=== PATIENT | female | born 1985 | race African-American/Black ===

== ENCOUNTER 2017-07-18 10:30 | Inpatient (IN) | payer OTHER ==
[2017-07-20] MEDS ORDERED: CITRIC ACID/SODIUM CITRATE 30 ML UNIT-DOSE CUP PO ONE (09:29)
[2017-07-20] MEDS ORDERED: ELECTROLYTE-148 SOLN 500 ML IV ONE (09:29)
[2017-07-20] MEDS ORDERED: ELECTROLYTE-148 SOLN 1,000 ML IV SCH (09:30)
[2017-07-20 09:49] VITALS: BMI 51.2
--- NOTE | 2017-07-20 10:13 | HP ---
Past Medical History - Primary Care Physician PCP:: Jael Howe - Admission Chief Complaint: 31 yrs , , 39.3/7 weeks previous c/section x2, requests for repeat c/section & tubal ligation History of Present Illness: PNC at [address] [place] [address] . wt gain 01/25/17 work Up: O pos, Rpr nr, Hbsag neg, Hiv neg, Rubella immune, Sickle neg , Pap NILM Gc/ct neg NT screen not done . Quad screen abn for Trisomy 21 1;559 risk Ultrasound done by [facility] for growth . 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 Weeks Gestation by Dates: 39.1 ...EDC by Dates: 07/26/17 ...EDC by Sono: 07/24/17 (39.3/7) Additional OB History: G1 2004 Ind ab. G2 02/09/2010 primary lftc/s 6'10". G3 repeat lftc/s 8'14" h/o GDM Heme/Onc: Yes: Anemia (rx po iron & pnv) Infectious Disease: No: AIDS, HIV, STD's, Tuberculosis Psych: No: Addictions, Bipolar, Panic Endocrine: No: Diabetes Mellitus - Past Surgical History Past Surgical History: Yes: (02/09/10 & 11/13/12) Hx Myomectomy: No Hx Transabdominal Cerclage: No - Smoking History Smoking history: Never smoked Have you smoked in the past 12 months: No Aproximately how many cigarettes per day: 2 - Alcohol/Substance Use Hx Alcohol Use: No Home Medications - Allergies Allergies/Adverse Reactions: Allergies Allergy/AdvReac Type Severity Reaction Status Date / Time Penicillins Allergy Severe Difficulty Verified 07/20/17 09:51 Breathing NUTS Allergy Severe Difficulty Uncoded 07/20/17 09:51 Breathing - Home Medications Home Medications: Ambulatory Orders Ferrous Sulfate 325 mg PO BID 06/06/17 Pnv No.95/Ferrous Fum/Folic AC [ Vitamin Tablet] 1 each PO DAILY Physical Exam - Maternity Vital Signs: Selected Entries 07/20/17 09:42 Weight 327 lb Selected Entries 07/20/17 09:42 Temperature 98.0 F Pulse Rate 98 H Respiratory 20 Rate Blood Pressure 132/69 Constitutional: Yes: Well Nourished, Obese, Pallor Eyes: Yes: WNL HENT: Yes: WNL, Normocephalic Neck: Yes: WNL Cardiovascular: Yes: WNL, Regular Rate and Rhythm Lungs: Clear to auscultation Breast(s): Yes: WNL - Abdominal Exam/OB Fundal Height: 42 Number of Fetuses: Single Presentation: Vertex Contractions: No Monitor Mode: External Heart Rate (range): 130-140 Heart Rate Location: RUST Category: I Accelerations: Uniform Decelerations: None - Vaginal Exam/OB Vaginal Bleediing: No Dilatation (cm): close Effacement (%): unefface Amniotic Membrane Status: Intact Presentation: Vertex/Position Station: -3 - Physical Exam Musculoskeletal: Yes: WNL Extremities: Yes: WNL. No: Calf Tenderness Edema: Yes Edema: LLE: 1+, RLE: 1+ Integumentary: Yes: Incision (pfannensteil scar), Tattoos Deep Tendon Reflex Grade: Normal +2 ...Motor Strength: WNL Psychiatric: Yes: WNL, Alert, Oriented - Labs Lab Results: Laboratory Tests 11/11/12 07/18/17 07/18/17 12:35 15:20 15:20 WBC 7.1 D RBC 3.65 Hgb 8.3 L D Hct 26.7 L D Plt Count 257 Neutrophils % 59.9 D Lymphocytes % 29.5 D PT with INR 11.00 INR 0.97 Sodium Potassium Chloride Carbon Dioxide BUN Creatinine Random Glucose AST ALT Total Protein Albumin Urine Protein Urine RBC 4 Urine WBC 13 Ur Leukocyte Esterase Urine WBC (Auto) 01/15/18 01/15/18 15:20 15:23 WBC RBC Hgb Hct Plt Count Neutrophils % Lymphocytes % PT with INR INR Sodium 140 Potassium 4.0 Chloride 107 Carbon Dioxide 23 BUN 9 Creatinine 0.6 Random Glucose 72 L AST 12 L D ALT 13 D Total Protein 6.8 Albumin 2.7 L Urine Protein 1+ H Urine RBC Urine WBC Ur Leukocyte Esterase 1+ H Urine WBC (Auto) 13 Hemorrhage Risk Assessment - Risk Factors Medium Risk Factors: Yes: Prior , uterine surgery,or multiple laparotomies, Obesity (BMI >40) Risk Score: 2 Risk Level: High Risk Problem List - Problems (1) with 39 completed weeks gestation Code(s): Z3A.39 - 39 WEEKS GESTATION OF (2) Previous section Code(s): Z98.891 - HISTORY OF UTERINE SCAR FROM PREVIOUS SURGERY (3) Morbid obesity with BMI of 50.0-59.9, adult Code(s): E66.01 - MORBID (SEVERE) OBESITY DUE TO EXCESS CALORIES; Z68.43 - BODY MASS INDEX (BMI) 50-59.9 , ADULT (4) Anemia affecting fourth Code(s): O99.019 - ANEMIA COMPLICATING , UNSPECIFIED TRIMESTER; O09.40 - SUPERVISION OF W GRAND MULTIPARITY, UNSP TRIMESTER Assessment/Plan 31 yrs , 39.3/7 weeks , previous c/sectionc2, multiparity Anemia, requests for repeat c/section & ,BTL
[2017-07-20] MEDS ORDERED: morphine SULFATE/Preservative Free 0.5 MG/ML (1cc Syringe) ONE ×7 (10:39→12:40)
[2017-07-20] MEDS ORDERED: ePHEDrine SULFATE 50 MG/1 ML AMPULE ONE (10:40)
[2017-07-20] MEDS ORDERED: PROPOFOL 20 ML ONE ×2 (10:40→12:54)
[2017-07-20] MEDS ORDERED: PHENYLEPHRINE HCL 10 MG/1 ML SINGLE DOSE VIAL ONE (11:39)
[2017-07-20] MEDS ORDERED: MIDAZOLAM HCL 2 MG/2 ML SINGLE DOSE VIAL ONE ×2 (12:18)
[2017-07-20 12:54] LABS: ARTERIAL BLOOD GAS BASE EXCESS -7.4 meq/l (-2-2); ARTERIAL BLOOD GAS PCO2 73.9 mmHg (35-45); ARTERIAL BLOOD GAS pH 7.12 (7.35-7.45)
[2017-07-20 12:55] LABS: VENOUS PH 7.24 (7.32-7.42); VENOUS PO2 22.7 mmHg (28-48)
[2017-07-20] MEDS ORDERED: GENTAMICIN SO4 80 MG/2 ML VIAL ONE (12:56)
[2017-07-20] MEDS ORDERED: OXYTOCIN 20 UNITS in 0.9% NS 20 UNIT/1,000 ML INFUS.BAG IV ONE (12:57)
[2017-07-20] MEDS ORDERED: morphine SULFATE/Preservative Free 0.5 MG/ML (1cc Syringe) EP ONE (13:00)
[2017-07-20] MEDS: OXYTOCIN 20 UNITS in 0.9% NS 20 UNIT/1,000 ML INFUS.BAG IV SCH (13:30)
[2017-07-20] MEDS ORDERED: METHYLERGONOVINE MALEATE 0.2 MG/1 ML AMP IM PRN (13:36)
[2017-07-20] MEDS ORDERED: ACETAMINOPHEN 1000 MG/100 ML VIAL (NON FORMULARY) IVPB PRN (13:43)
[2017-07-20] MEDS ORDERED: ONDANSETRON 4 MG/2 ML VIAL IVPUSH PRN (13:45)
--- NOTE | 2017-07-20 13:55 | OP ---
Operative Note - Note: Operative Date: 07/20/17 Pre-Operative Diagnosis: 39.3 weeks, previous c/section x2 , morbid obesity, , multiparity, anemia Operation: Repeat LFTC/Section & BTL & Lysis of omental adhesions Findings: 12.07 PM .Baby Boy Vx , ROT , 9/9, WT 7'13", Ht 19" . during delivery of baby vx , rot position, Mity vac suction cup applied to enable the delivery omental adhesions to uterus anteriorly & Rt side latrally , clamped cut cauterized & ligated . Both tubes in mid ampullary region were doubly ligated with plain catgut cut & endosalpinx cauterized by modified Veronica technique both ovaries normal Surgeon: Jael Howe Rapid Transit Operator: Kenna Salgado Anesthesiologist/CLIENT SERVICE ASSOCIATE: Keke Haque MD Anesthesia: Epidural (attempted spinal followed by epidural ) Specimens Removed: cord segment for cord blood gas,. cord blood. placenta Estimated Blood Loss (mls): 700 Drains, Volume Out (mls): 150 Fluid Volume Replaced (mls): 3,000 (iv clindamicin 600 mg prior to incision )
--- NOTE | 2017-07-20 14:16 | PN ---
Delivery - Delivery Section: Repeat, Low Flap Transverse (BTL, , lysis of omental adhesions ) Type of Anesthesia: Epidural Episiotomy/Laceration: None EBL (cc): 700 (stokes output 150 ml raina color ) Delivery, Single - Stages of Labor Date of Delivery: 07/20/17 Time of Delivery: 12:07 Time Placenta Delivered: 12:08 Placenta: Yes: Manual Removal, Uterine Exploration - Condition of Infant Sink Maker/Precision Grinder Present: Yes Name: Jamil Leslie Infant Gender: Male Weight: 7 lb 13 oz Total Hours ROM (Hrs/Mins): 0/01 - 1 Minute Total Score: 9 5 Minutes Total Score: 9 - Feeding Plan Initial Plan: Elected not to breastfeed exclusively throughout hospitalization Remarks - Remarks Remarks: 31 [id number] , Indication : 39.3/7 weeks , previous c/section x2 ,Multiparity severe Anemia ( hgb 8.3) , , Morbid Obesity ( BMI 51.2) Intraop difficulty encountered for delivery of feus, Mity Vac vaccum cup applied to deliver the baby . omental adhesions to Rt side lateral wall & ant uterine wall clamped , cut ligated or cauterized
[2017-07-20] MEDS ORDERED: ALBUTEROL SO4 18 GM HFA INHALER IH PRN (14:26)
[2017-07-20] MEDS: CLINDAMYCIN 900 MG PREMIX IVPB 900 MG/50 ML BAG IVPB SCH (17:48)
--- NOTE | 2017-07-20 20:09 | OP ---
DATE OF OPERATION: 07/20/2017 PREOPERATIVE DIAGNOSIS: 39.3 weeks, previous section x2, morbid obesity, body mass index 51.2, multiparity, and anemia. OPERATION: Repeat low-flap transverse section, bilateral tubal ligation, and lysis of omental adhesions. FINDINGS: This is a 31-year-old 4, para 2-0-1-2, hemoglobin is 8.3, she is not in labor, and her BMI is 51.2, and she has previous sections x2 done Pfannenstiel incision previously. Patient also requests for the tubal ligation. PROCEDURE: Patient abdomen was shaved and prepped, Perez catheter was placed. SCD stockings were in situ. She was taken to the operating room table. Spinal anesthesia was attempted, and it was not successful in placing the spinal anesthesia, so anesthesiologist decided to give epidural anesthesia, and so she was given epidural anesthesia, and then patient was placed in supine position. Abdominal fat was taped up to enable good access to the incision area, and then abdomen was prepped. Chloraprep was used, and then abdomen was draped in usual manner Pfannenstiel incision. Once the anesthesiologist okay to proceed with the procedure, we started section. A Pfannenstiel incision was made through previous scar, skin and subcutaneous tissue, scar tissue. Anterior rectus sheath was incised transversely. Bleeding points were clamped and cauterized, and rectus muscle was from the rectus sheath. The parietal peritoneum was attempted to open vertically.Asses to peritoneal cavity was not enough , hence both the sides muscles were transected laterally. Then there was no bladder peritoneum separately, seen, and then the lower uterine segment was incised transversely, and then fluid was clear. It was difficult to deliver the baby, so the Mityvac vacuum cup was applied on the head after 2 pull-offs, with the 3rd pull, and the fundal pressure, baby was delivered at 12:07 p.m. from ROT position. Baby's was 9 and 9, and Dr. Leslie, the artillery meteorological man, was present in the room. Baby boy, the weight was 7 pounds 13 ounces, and height was 19 inch. Cord was clamped, cut. Cord blood also was sent, cord blood was collected, and before that cord segment was sent for the cord blood gas, and placenta was completely removed with the membranes. Uterine cavity was cleaned. Uterine incision was held with 4 clamps and then uterine incision was closed in 2 layers, continuous locking with Biosyn 0 suture. Second layer was continuos locking with the Biosyn 0 suture, and hemostasis was checked. Then omental adhesions were lateral wall of the uterus was clamped, cut and lysis of adhesions anteriorly on the body of the uterus. Also there was omental adhesions, they were clamped, cut, and then the adhesions towards the uterus was suture ligated with the 2-0 Vicryl suture. Hemostasis was verified, then considered with the tubal ligation. First the left side. The left side tube was isolated and inspected completely with the fimbrial end. The ampullary portion of the tube was doubly ligated with the plain 0 catgut, and the portion of the tube above the ligature was cut and sent for pathology examination and the salpinx was cauterized. Similar procedure also was done on the right tube, and the right tube was sent for pathology examination too. Hemostasis was checked on both the sides. Both the side ovaries were inspected. They were normal. Once again hemostasis verified. Sponge, instrument, needle count was correct, and the peritoneum was isolated with the Magdalena clamps, and then parietal peritoneum was closed with the Vicryl 0 suture. Then the muscles were approximated together with a Biosyn 0 interrupted sutures. Hemostasis was verified underneath the rectus sheath flaps , and then the rectus sheath was closed with Vicryl 0 suture. Continuous sutures were taken; the subcutaneous tissue hemostasis was verified, and interrupted sutures were taken in subcutaneous tissue with the Biosyn 0 suture, and skin was approximated with the kendy. Pressure dressing was given. Blood clots were removed from the vagina. Estimated blood loss was 700 mL, and her urine output was 150 mL, raina colored in the Perez. Intraoperatively she received 3000 of fluid intraoperatively, and she received 600 mg of clindamycin prior to the incision. SURGEON: Baldemar Howe M.D. ASSOCIATE STORE LEADER SURGEON: Kenna Salgado M.D. ANESTHESIOLOGIST: Keke Haque M.D. ANESTHESIA : EPIDURAL ESTIMATED BLOOD LOSS: 700 mL. URINE OUTPUT : 150 ml Raina color BALDEMAR HOWE M.D. CHON/[id number] MTDD
[2017-07-20] MEDS: IBUPROFEN 600 MG TABLET (FP) PO PRN (21:26)
[2017-07-20] MEDS ORDERED: oxyCODONE HCL 5 MG TABLET PO PRN ×2 (23:54)
[2017-07-21] MEDS: ACETAMINOPHEN 325 MG TABLET (FP) PO PRN ×3 (00:01→20:24)
[2017-07-21] MEDS: CLINDAMYCIN 900 MG PREMIX IVPB 900 MG/50 ML BAG IVPB SCH ×2 (01:56→09:17)
[2017-07-21 08:26] LABS: BASO % 0.1 % (0-2.0); HEMATOCRIT 23.4 % (32.4-45.2); HEMOGLOBIN 7.3 GM/dL (10.7-15.3); LYMPH % 19.7 % (8-40); MCH 22.5 pg (25.7-33.7); MCHC 31.1 g/dl (32.0-36.0); MEAN CELL VOLUME 72.2 fl (80-96); MEAN PLT VOLUME 9.5 fl (7.5-11.1); NEUT % 71.2 % (42.8-82.8); PLATELET COUNT 234 K/MM3 (134-434); RBC 3.24 M/mm3 (3.60-5.2); RDW 17.5 % (11.6-15.6); WHITE BLOOD COUNT 9.4 K/mm3 (4.0-10.0)
[2017-07-21] MEDS: ENOXAPARIN NA (PORCINE) 40 MG/0.4 ML DISP.SYRIN SQ SCH (09:39)
[2017-07-21] MEDS: PRENATAL VITAMINS W/ FOLIC ACID TABLET (FP) PO SCH (10:26)
--- NOTE | 2017-07-21 10:26 | PN ---
Post Progress Note - Subjective Subjective: 31 yo Para 3 status post repeat seen and evaluated. Doing well. She c/o incision pain. Post Day: 1 Type of Delivery: Repeat C/S Vital Signs: Vital Signs Temperature 98.6 F 07/21/17 06:00 Pulse Rate 81 07/21/17 06:00 Respiratory Rate 20 07/21/17 06:00 Blood Pressure 124/82 07/21/17 06:00 O2 Sat by Pulse Oximetry (%) 100 07/20/17 14:25 Breast Exam: Yes: Soft Uterus: Yes: Fundus Firm Incision: Yes: Dressing dry and intact Abdomen/GI: Yes: Abdomen soft, Tolerating PO Lochia: Yes: Rubra Lochia, amount: Small Extremities: Yes: Calves non-tender Perineum: Yes: Intact Activity: Ambulating - Labs Labs: CBC WBC 9.4 K/mm3 (4.0-10.0) D 07/21/17 08:00 RBC 3.24 M/mm3 (3.60-5.2) L 07/21/17 08:00 Hgb 7.3 GM/dL (10.7-15.3) L D 07/21/17 08:00 Hct 23.4 % (32.4-45.2) L 07/21/17 08:00 MCV 72.2 fl (80-96) L 07/21/17 08:00 MCH 22.5 pg (25.7-33.7) L 07/21/17 08:00 MCHC 31.1 g/dl (32.0-36.0) L 07/21/17 08:00 RDW 17.5 % (11.6-15.6) H 07/21/17 08:00 Plt Count 234 K/MM3 (134-434) 07/21/17 08:00 MPV 9.5 fl (7.5-11.1) 07/21/17 08:00 Neutrophils % 71.2 % (42.8-82.8) 07/21/17 08:00 Lymphocytes % 19.7 % (8-40) D 07/21/17 08:00 Monocytes % 8.0 % (3.8-10.2) 07/21/17 08:00 Eosinophils % 1.0 % (0-4.5) 07/21/17 08:00 Basophils % 0.1 % (0-2.0) 07/21/17 08:00 Problem List - Problems (1) Status post repeat low transverse section Code(s): Z98.891 - HISTORY OF UTERINE SCAR FROM PREVIOUS SURGERY Assessment/Plan Status post repeat Ambulation Analgesia as needed Continue routine post op care
--- NOTE | 2017-07-21 11:04 | PN ---
Progress Note (short form) - Note Progress Note: Anesthesia post op note; POD#1 S/P under epidural.Pat seen and examined. VSS. No apperent post anesthesia complications.Signed off.
[2017-07-21] MEDS: oxyCODONE HCL 5 MG TABLET PO PRN ×3 (11:38→20:23)
[2017-07-21] MEDS: SIMETHICONE 80 MG TAB.CHEW (FP) PO PRN ×2 (11:41→20:23)
[2017-07-21] MEDS: OXYTOCIN 20 UNITS in 0.9% NS 20 UNIT/1,000 ML INFUS.BAG IV SCH (13:45)
--- NOTE | 2017-07-21 17:06 | PN ---
Progress Note (short form) - Note Progress Note: pod#1 , post Repeat c/section & BTL, severe Anemia , Morbid Obesity( BMI 51.2) pt c/o pain at incision site 7/10 oob voiding without difficulty passing flatus , tolerated po clear fluids & diet . pt does not c/o dizziness, Selected Entries 07/21/17 02:00 Temperature 97.9 F Pulse Rate 91 H Respiratory 20 Rate Blood Pressure 126/76 Blood Pressure 92 Mean RS cta P/ A obese abdomen . abd soft . bs active dressing dry Laboratory Tests 07/21/17 08:00 WBC 9.4 D RBC 3.24 L Hgb 7.3 L D Hct 23.4 L Plt Count 234 Neutrophils % 71.2 Lymphocytes % 19.7 D Monocytes % 8.0 Eosinophils % 1.0 Imp stable hemodynamically post c/s btl, Plan : ct po care encourage ambulation, deep breathing , using incentive spirometer pt iwas offerred Blood transfusion but she refused R/B/A explained she insists she will continue to use expectant management start po iron & pnv Problem List - Problems (1) with 39 completed weeks gestation Code(s): Z3A.39 - 39 WEEKS GESTATION OF (2) Previous section Code(s): Z98.891 - HISTORY OF UTERINE SCAR FROM PREVIOUS SURGERY (3) Morbid obesity with BMI of 50.0-59.9, adult Code(s): E66.01 - MORBID (SEVERE) OBESITY DUE TO EXCESS CALORIES; Z68.43 - BODY MASS INDEX (BMI) 50-59.9 , ADULT (4) Anemia affecting fourth Code(s): O99.019 - ANEMIA COMPLICATING , UNSPECIFIED TRIMESTER; O09.40 - SUPERVISION OF W GRAND MULTIPARITY, UNSP TRIMESTER
[2017-07-21] MEDS: SENNOSIDES/DOCUSATE COMBO (SENNA PLUS) TABLET (UD) PO PRN (20:25)
[2017-07-21] MEDS: FERROUS SO4 325 MG TABLET (FP) PO SCH (21:55)
--- NOTE | 2017-07-22 07:44 | PN ---
Progress Note (short form) - Note Progress Note: pod 2 s/p c/s doing well, ambulating, no dizziness no excess vaginal bleeding Last Vital Signs Temp Pulse Resp BP Pulse Ox 99.3 F 101 H 18 137/72 100 07/21/17 22:00 07/21/17 22:00 07/21/17 22:00 07/21/17 22:00 07/20/17 14:25 abdomen soft, no distension, no cva incision dry, clean no calf tenderness no excess vaginal bleeding CBC, BMP 07/21/17 08:00 Last Vital Signs Temp Pulse Resp BP Pulse Ox 99.3 F 101 H 18 137/72 100 07/21/17 22:00 07/21/17 22:00 07/21/17 22:00 07/21/17 22:00 07/20/17 14:25 impression anemia asymptomatic plan iron vit , repeat cbc ,revaluate
[2017-07-22] MEDS: ACETAMINOPHEN 325 MG TABLET (FP) PO PRN ×3 (08:08→23:11)
[2017-07-22] MEDS: oxyCODONE HCL 5 MG TABLET PO PRN ×3 (08:09→23:11)
[2017-07-22] MEDS: SIMETHICONE 80 MG TAB.CHEW (FP) PO PRN ×3 (08:10→23:11)
[2017-07-22] MEDS: ENOXAPARIN NA (PORCINE) 40 MG/0.4 ML DISP.SYRIN SQ SCH (09:59)
[2017-07-22] MEDS: PRENATAL VITAMINS W/ FOLIC ACID TABLET (FP) PO SCH (09:59)
[2017-07-22] MEDS: FERROUS SO4 325 MG TABLET (FP) PO SCH ×2 (09:59→21:26)
[2017-07-22] MEDS: SENNOSIDES/DOCUSATE COMBO (SENNA PLUS) TABLET (UD) PO PRN (21:26)
[2017-07-23 07:30] LABS: BASO % 0.3 % (0-2.0); EOS % 2.4 % (0-4.5); HEMATOCRIT 24.3 % (32.4-45.2); HEMOGLOBIN 7.3 GM/dL (10.7-15.3); LYMPH % 17.5 % (8-40); MCH 21.9 pg (25.7-33.7); MCHC 29.9 g/dl (32.0-36.0); MEAN PLT VOLUME 9.5 fl (7.5-11.1); MONO % 7.1 % (3.8-10.2); NEUT % 72.7 % (42.8-82.8); PLATELET COUNT 259 K/MM3 (134-434); RBC 3.33 M/mm3 (3.60-5.2); RDW 17.6 % (11.6-15.6); WHITE BLOOD COUNT 13.8 K/mm3 (4.0-10.0)
[2017-07-23] MEDS: IBUPROFEN 600 MG TABLET (FP) PO PRN (09:20)
[2017-07-23] MEDS: oxyCODONE HCL 5 MG TABLET PO PRN ×2 (09:21→20:25)
[2017-07-23] MEDS: ACETAMINOPHEN 325 MG TABLET (FP) PO PRN ×2 (09:21→20:26)
[2017-07-23] MEDS: SIMETHICONE 80 MG TAB.CHEW (FP) PO PRN ×2 (09:22→20:24)
[2017-07-23] MEDS: PRENATAL VITAMINS W/ FOLIC ACID TABLET (FP) PO SCH (10:48)
[2017-07-23] MEDS: FERROUS SO4 325 MG TABLET (FP) PO SCH ×2 (10:48→21:33)
[2017-07-23] MEDS: ENOXAPARIN NA (PORCINE) 40 MG/0.4 ML DISP.SYRIN SQ SCH (10:48)
--- NOTE | 2017-07-23 12:50 | PN ---
Post Progress Note - Subjective Subjective: 31 yo Para 3 status post repeat , seen and evaluated. Doing well. Post Day: 3 Type of Delivery: Repeat C/S Vital Signs: Vital Signs Temperature 99.8 F H 07/22/17 22:00 Pulse Rate 103 H 07/22/17 22:00 Respiratory Rate 20 07/22/17 22:00 Blood Pressure 126/86 07/22/17 22:00 O2 Sat by Pulse Oximetry (%) 100 07/20/17 14:25 Breast Exam: Yes: Soft Uterus: Yes: Fundus Firm Incision: Yes: Brittny intact Abdomen/GI: Yes: Abdomen soft, Tolerating PO Lochia: Yes: Rubra Lochia, amount: Small Extremities: Yes: Calves non-tender Perineum: Yes: Intact Activity: Ambulating - Labs Labs: CBC WBC 13.8 K/mm3 (4.0-10.0) H D 07/23/17 07:10 RBC 3.33 M/mm3 (3.60-5.2) L 07/23/17 07:10 Hgb 7.3 GM/dL (10.7-15.3) L 07/23/17 07:10 Hct 24.3 % (32.4-45.2) L 07/23/17 07:10 MCV 73.0 fl (80-96) L 07/23/17 07:10 MCH 21.9 pg (25.7-33.7) L 07/23/17 07:10 MCHC 29.9 g/dl (32.0-36.0) L 07/23/17 07:10 RDW 17.6 % (11.6-15.6) H 07/23/17 07:10 Plt Count 259 K/MM3 (134-434) 07/23/17 07:10 MPV 9.5 fl (7.5-11.1) 07/23/17 07:10 Neutrophils % 72.7 % (42.8-82.8) 07/23/17 07:10 Lymphocytes % 17.5 % (8-40) 07/23/17 07:10 Monocytes % 7.1 % (3.8-10.2) 07/23/17 07:10 Eosinophils % 2.4 % (0-4.5) D 07/23/17 07:10 Basophils % 0.3 % (0-2.0) 07/23/17 07:10 Problem List - Problems (1) Status post repeat low transverse section Code(s): Z98.891 - HISTORY OF UTERINE SCAR FROM PREVIOUS SURGERY Assessment/Plan Status post repeat Stable Continue routine post op care
[2017-07-23] MEDS: BISACODYL 10 MG SUPP.RECT RC PRN (15:54)
[2017-07-23] MEDS ORDERED: diphenhydrAMINE HCL 25 MG CAPSULE (FP) PO PRN (22:03)
--- NOTE | 2017-07-24 06:02 | DS ---
Physical Exam-RELAY SHOP SUPERVISOR Vital Signs: Vital Signs Temperature 98.6 F 07/23/17 22:00 Pulse Rate 108 H 07/23/17 22:00 Respiratory Rate 18 07/23/17 22:00 Blood Pressure 146/79 07/23/17 22:00 O2 Sat by Pulse Oximetry (%) 100 07/20/17 14:25 Constitutional: Yes: Well Nourished Eyes: Yes: Conjunctiva Clear HENT: Yes: Atraumatic Neck: Yes: Supple, Trachea Midline Cardiovascular: Yes: Regular Rate and Rhythm Respiratory: Yes: Regular, CTA Bilaterally Gastrointestinal: Yes: Normal Bowel Sounds ...Rectal Exam: Yes: WNL Renal/: Yes: WNL Pelvis: Yes: WNL External Genitalia: Yes: Normal Vaginal Exam: Yes: Normal Wound/Incision: Yes: Well Approximated, [place] Intact Neurological: Yes: Alert, Oriented ...Motor Strength: WNL Psychiatric: Yes: Alert, Oriented Labs: CBC, BMP 07/23/17 07:10 Delivery - Delivery Section: Repeat, Low Flap Transverse (BTL, , lysis of omental adhesions ) Type of Anesthesia: Epidural Episiotomy/Laceration: None EBL (cc): 700 (stokes output 150 ml raina color ) Delivery, Single - Stages of Labor Date of Delivery: 07/20/17 Time of Delivery: 12:07 Time Placenta Delivered: 12:08 Placenta: Yes: Manual Removal, Uterine Exploration - Condition of Infant Community Development Planner/Literary Writer Present: Yes Name: Jamil Leslie Infant Gender: Male Weight: 7 lb 13 oz Total Hours ROM (Hrs/Mins): 0/01 - 1 Minute Total Score: 9 5 Minutes Total Score: 9 - Feeding Plan Initial Plan: Elected not to breastfeed exclusively throughout hospitalization Discharge Summary Reason For Visit: Current Active Problems Anemia affecting fourth (Acute) Delivery by (planned) section occurring after 37 completed weeks of gestation but before 39 completed weeks gestation due to (spontaneous) onset of labor, with mention of complication (Acute) Morbid obesity with BMI of 50.0-59.9, adult (Acute) with 39 completed weeks gestation (Acute) Previous section (Acute) Status post repeat low transverse section (Acute) Procedures: Principal: Repeat Low Transverse Hospital Course: Routine Post op care Condition: Good - Instructions Diet, Activity, Other Instructions: Post Instructions DIET: Continue good diet high in protein, calcium, and iron rich foods. Drink at least eight (8) glasses of water daily in addition to other fluids. ct Regular diet MEDICATIONS: Continue vitamins and iron as previously directed. Motrin and Tylenol may be taken for minor discomfort. ACTIVITY: Mild to moderate exercise may be started in two (2) weeks. Take frequent rest periods. Resume normal activity after six (6) week check up. WOUND CARE OF OPERATIVE SITE: Continue use of perineal bottle until vaginal discharge stops. Keep area clean. Shower daily. Keep abdominal wound dry. Report any drainage or redness to physician. Tub baths, tampons and douches are not permitted for [address] Breast feeding & or Bottle feeding BREAST CARE: (For those that are not breast feeding): If engorgement occurs: Wear tight fitting bra. Take Tylenol or Motrin for pain. Apply cold packs (ice in bags to each breast ) FAMILY PLANNING: There are many control alternatives to pursue and they should be discussed at your first office visit. You may resume sexual activity after your six (6) week check up. (Remember, breast feeding is not a contraceptive) NEXT PHYSICIAN APPOINTMENT: Be certain to call for a one (1) week appointment, unless otherwise directed. rtc for kendy removal Call Clinic or got to Emergency Dept if you have any of the following: Heavy vaginal bleeding Painful urination Leg pain Unusual odor noted to vaginal bleeding High fever Red streaking noted on breast Referrals: Jael Howe MD [Staff Physician] - Disposition: HOME - Home Medications Comprehensive Discharge Medication List: Ambulatory Orders Ferrous Sulfate 325 mg PO BID 06/06/17 Pnv No.95/Ferrous Fum/Folic AC [ Vitamin Tablet] 1 each PO DAILY Acetaminophen [Tylenol .Regular Strength -] 500 mg PO Q4H PRN #30 tablet Docusate Sodium [Colace] 100 mg PO BID #60 capsule 07/21/17 Ferrous Sulfate [Feosol] 325 mg PO BID #60 ud 07/21/17 Ibuprofen [Motrin -] 600 mg PO Q4H PRN #30 tablet 07/21/17 Oxycodone HCl [Roxicodone -] 5 mg PO Q4H PRN #30 tablet MDD 6 tabs 07/21/17 Vitamins (Sjr) - 1 tab PO DAILY #30 tablet 07/21/17
[2017-07-24] MEDS: IBUPROFEN 600 MG TABLET (FP) PO PRN ×3 (09:52→21:41)
[2017-07-24] MEDS: ACETAMINOPHEN 325 MG TABLET (FP) PO PRN ×3 (09:53→21:40)
[2017-07-24] MEDS: oxyCODONE HCL 5 MG TABLET PO PRN ×3 (09:54→21:40)
[2017-07-24] MEDS: SIMETHICONE 80 MG TAB.CHEW (FP) PO PRN ×3 (09:54→21:38)
[2017-07-24] MEDS: FERROUS SO4 325 MG TABLET (FP) PO SCH ×2 (09:57→21:38)
[2017-07-24] MEDS: ENOXAPARIN NA (PORCINE) 40 MG/0.4 ML DISP.SYRIN SQ SCH (09:57)
[2017-07-24] MEDS: PRENATAL VITAMINS W/ FOLIC ACID TABLET (FP) PO SCH (09:57)
[2017-07-24] MEDS: BISACODYL 10 MG SUPP.RECT RC PRN (12:47)
[2017-07-24 16:26] LABS: BASO % 0.5 % (0-2.0); EOS % 1.8 % (0-4.5); HEMOGLOBIN 7.6 GM/dL (10.7-15.3); LYMPH % 20.2 % (8-40); MCH 22.4 pg (25.7-33.7); MCHC 30.5 g/dl (32.0-36.0); MEAN CELL VOLUME 73.4 fl (80-96); MONO % 6.4 % (3.8-10.2); NEUT % 71.1 % (42.8-82.8); PLATELET COUNT 301 K/MM3 (134-434); RDW 17.4 % (11.6-15.6); WHITE BLOOD COUNT 10.5 K/mm3 (4.0-10.0)
--- NOTE | 2017-07-24 20:02 | PN ---
Progress Note (short form) - Note Progress Note: Patient is lying comfortably in bed. She denies any headache, blurry vision nor epigastric pain. WBC is elevated. Repeat CBC show a significant decrease in WBC. A/P : Ambulation D/C home in am Problem List - Problems (1) Status post repeat low transverse section Code(s): Z98.891 - HISTORY OF UTERINE SCAR FROM PREVIOUS SURGERY
[2017-07-24] MEDS: SENNOSIDES/DOCUSATE COMBO (SENNA PLUS) TABLET (UD) PO PRN (21:41)
[2017-07-24] MEDS ORDERED: metroNIDAZOLE 250 MG TABLET PO SCH (22:00)
[2017-07-25 08:17] LABS: BASO % 0.2 % (0-2.0); EOS % 2.9 % (0-4.5); HEMATOCRIT 26.8 % (32.4-45.2); HEMOGLOBIN 8.1 GM/dL (10.7-15.3); LYMPH % 18.7 % (8-40); MCH 22.2 pg (25.7-33.7); MCHC 30.4 g/dl (32.0-36.0); MEAN PLT VOLUME 9.5 fl (7.5-11.1); MONO % 8.1 % (3.8-10.2); NEUT % 70.1 % (42.8-82.8); PLATELET COUNT 331 K/MM3 (134-434); RBC 3.67 M/mm3 (3.60-5.2); RDW 17.9 % (11.6-15.6); WHITE BLOOD COUNT 10.5 K/mm3 (4.0-10.0)
[2017-07-25] MEDS: FERROUS SO4 325 MG TABLET (FP) PO SCH (10:00)
[2017-07-25] MEDS: PRENATAL VITAMINS W/ FOLIC ACID TABLET (FP) PO SCH (10:00)
[2017-07-25] MEDS: ENOXAPARIN NA (PORCINE) 40 MG/0.4 ML DISP.SYRIN SQ SCH (10:00)
--- NOTE | 2017-07-25 12:19 | PN ---
Post Progress Note - Subjective Subjective: c/o pain on rt side of incsiion no oozing at inciion site pain scale 6-7/10 afebrile for 24 hrs Type of Delivery: Repeat C/S Vital Signs: Vital Signs Temperature 98 F 07/25/17 01:30 Pulse Rate 78 07/25/17 01:30 Respiratory Rate 18 07/25/17 01:30 Blood Pressure 138/86 07/25/17 01:30 O2 Sat by Pulse Oximetry (%) 100 07/20/17 14:25 Breast Exam: Yes: Soft, Other (pumping & dumping milk since baby is under light for hyperbilirubinemia ). No: Engorged Uterus: Yes: Fundus Firm, Fundus below umbilicus Incision: Yes: Kendy intact, Other (tenderness on rt side of inciion ,). No: Redness, Oozing Abdomen/GI: Yes: Abdomen soft, Abdominal Distention (obese abdomen ), Tender ( when lifts up the abdomenal fat ), Passing flatus (bm done ), Tolerating PO ( diet ) Lochia: Yes: Rubra Lochia, amount: Moderate Extremities: Yes: Calves non-tender Perineum: Yes: Intact Activity: Ambulating - Labs Labs: CBC WBC 10.5 K/mm3 (4.0-10.0) H 07/25/17 07:28 RBC 3.67 M/mm3 (3.60-5.2) 07/25/17 07:28 Hgb 8.1 GM/dL (10.7-15.3) L 07/25/17 07:28 Hct 26.8 % (32.4-45.2) L 07/25/17 07:28 MCV 73.0 fl (80-96) L 07/25/17 07:28 MCH 22.2 pg (25.7-33.7) L 07/25/17 07:28 MCHC 30.4 g/dl (32.0-36.0) L 07/25/17 07:28 RDW 17.9 % (11.6-15.6) H 07/25/17 07:28 Plt Count 331 K/MM3 (134-434) 07/25/17 07:28 MPV 9.5 fl (7.5-11.1) 07/25/17 07:28 Neutrophils % 70.1 % (42.8-82.8) 07/25/17 07:28 Lymphocytes % 18.7 % (8-40) 07/25/17 07:28 Monocytes % 8.1 % (3.8-10.2) 07/25/17 07:28 Eosinophils % 2.9 % (0-4.5) 07/25/17 07:28 Basophils % 0.2 % (0-2.0) 07/25/17 07:28 Problem List - Problems (1) with 39 completed weeks gestation Code(s): Z3A.39 - 39 WEEKS GESTATION OF (2) Previous section Code(s): Z98.891 - HISTORY OF UTERINE SCAR FROM PREVIOUS SURGERY (3) Morbid obesity with BMI of 50.0-59.9, adult Code(s): E66.01 - MORBID (SEVERE) OBESITY DUE TO EXCESS CALORIES; Z68.43 - BODY MASS INDEX (BMI) 50-59.9 , ADULT (4) Anemia affecting fourth Code(s): O99.019 - ANEMIA COMPLICATING , UNSPECIFIED TRIMESTER; O09.40 - SUPERVISION OF W GRAND MULTIPARITY, UNSP TRIMESTER (5) delivery delivered Code(s): O82 - ENCOUNTER FOR DELIVERY WITHOUT INDICATION Assessment/Plan 31 yrs , 39.3/7 weeks , previous c/sectionc2, multiparity Anemia, requests for repeat c/section & ,BTL s/p repeat c/s & btl , severe anemia yesterday once spike of 101 temp , no obvious infection is noted emperically po Flagyl 500 mg tid x7 days are started . pt is counselled for anemia , wound care , ambulation, deep breathing, po fluids intake , high iron diet . discharge today. she will rtc in 1 week for removal of kendy
[2017-07-25 17:05] VITALS: BP 141/87; PULSE 82; TEMP 97.7
--- NOTE | 2017-07-27 13:21 | PATH ---
Surgical Pathology Report Patient Name: TAMIE MORRIS [facility]. Rec. 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 Specimen(s) Received A: PLACENTA B: PORTION OF LEFT FALLOPIAN TUBE C: PORTION OF RIGHT FALLOPIAN TUBE Clinical History Final Diagnosis A. PLACENTA, DELIVERY: FOCALLY DISRUPTED THIRD TRIMESTER PLACENTA WITH THREE VESSEL UMBILICAL CORD AND UNREMARKABLE PLACENTAL MEMBRANES. B. LEFT FALLOPIAN TUBE, PARTIAL SALPINGECTOMY: FULL LUMINAL PORTION OF UNREMARKABLE FALLOPIAN TUBE. C. RIGHT FALLOPIAN TUBE, PARTIAL SALPINGECTOMY: FULL LUMINAL PORTION OF UNREMARKABLE FALLOPIAN TUBE. Electronically Signed Driss Bridges M.D. Gross Description A. The specimen is received fresh labeled placenta and is a 544 gram, 18.5 x 13.5 x 3.2 cm. placenta with attached membranes and umbilical cord. The attached membranes are cheung, thick, cloudy and insert marginally. The umbilical cord measures 23 cm. in length and averages 1 cm. in diameter. The cord inserts eccentrically, 4 cm. to the nearest margin. No true knots or strictures are identified. Cut surface of the umbilical cord reveals 3 vessels. The surface is figueroa-blue with minimal fibrin deposition and appropriate caliber vessels. The maternal surface is red-brown with focal defects. Sectioning reveals red-brown, spongy parenchyma. No lesions are identified. Pickle Maker sections are submitted in three cassettes as follows: 1- membrane rolls and umbilical cord; 2-3- full thickness sections of placenta. B. Received in formalin labeled "portion of left tube," is a 1.4 cm in length portion of fallopian tube. No fimbria are present. The outer surface is cheung-garcia and smooth. Sectioning reveals an unremarkable lumen. Pickle Maker sections are submitted in one cassette. C. Received in formalin labeled "portion of right tube," is a 0.7 cm in length portion of fallopian tube. No fimbria are present. The outer surface is cheung-garcia and smooth. Sectioning reveals unremarkable lumen. Pickle Maker sections are submitted in one cassette. /07/25/2017/2018
== END 2017-07-25 18:00 | disposition home or self-care (01) | DRG 540 ==
LOC: JLDR 07-20 09:10 → J3W 07-20 15:00
PROVIDERS: ADMIT Obstetrics & Gynecology; ATTEND Obstetrics & Gynecology
PROC: 10D00Z1 Extraction of Products of Conception, Low, Open Approach (ICD-10-PCS; principal; 2017-07-20)
PROC: 0UL70DZ Occlusion of Bilateral Fallopian Tubes with Intraluminal Device, Open Approach (ICD-10-PCS; 2017-07-20)
DX: O34.211 Maternal care for low transverse scar from previous cesarean delivery (principal); O99.213 Obesity complicating pregnancy, third trimester; E66.01 Morbid (severe) obesity due to excess calories; Z68.43 Body mass index [BMI] 50.0-59.9, adult; O99.013 Anemia complicating pregnancy, third trimester; D64.9 Anemia, unspecified; O26.893 Other specified pregnancy related conditions, third trimester; J45.909 Unspecified asthma, uncomplicated; Z3A.39 39 weeks gestation of pregnancy; Z37.0 Single live birth; Z30.2 Encounter for sterilization
CPT/HCPCS: 36415; 36600; 82803; 85025; 94010

== ENCOUNTER 2019-08-19 20:55 | Emergency (ER) | payer OTHER ==
[2019-08-19 21:19] VITALS: BP 120/78; PULSE 91; TEMP 98.1; BMI 52.7
--- NOTE | 2019-08-19 22:13 | PDOC ---
History of Present Illness - General Chief Complaint: Cold Symptoms Stated Complaint: DIZZINESS History Source: Patient Exam Limitations: No Limitations - History of Present Illness Initial Comments: 08/19/19 22:07 Patient is a 33-year-old female presents to the ED with sinus pressure, ear pain , and fullness in her face since yesterday. She denies any fevers. She states that she feels that this is her sinuses. She denies any nausea or vomiting. She has not been taking anything for her symptoms. She has a history of asthma and has not required her albuterol. She denies any cough. She did not get a flu shot this year. Past History - Past Medical History Allergies/Adverse Reactions: Allergies Allergy/AdvReac Type Severity Reaction Status Date / Time Penicillins Allergy Severe Difficulty Verified 08/19/19 21:19 Breathing NUTS Allergy Severe Difficulty Uncoded 08/19/19 21:19 Breathing Home Medications: Ambulatory Orders Ferrous Sulfate 325 mg PO BID 06/06/17 Pnv No.95/Ferrous Fum/Folic AC [ Vitamin Tablet] 1 each PO DAILY Acetaminophen [Tylenol .Regular Strength -] 500 mg PO Q4H PRN #30 tablet Docusate Sodium [Colace] 100 mg PO BID #60 capsule 07/21/17 Ferrous Sulfate [Feosol] 325 mg PO BID #60 ud 07/21/17 Ibuprofen [Motrin -] 600 mg PO Q4H PRN #30 tablet 07/21/17 Vitamins (Sjr) - 1 tab PO DAILY #30 tablet 07/21/17 oxyCODONE HCL [Roxicodone -] 5 mg PO Q4H PRN #30 tablet MDD 6 tabs 07/21/17 Metronidazole [Flagyl] 500 mg PO TID #20 capsule 07/25/17 Cetirizine HCl/Pseudoephedrine [Zyrtec-D Tablet] 1 each PO BID 7 Days #14 tab.er.12h 08/19/19 Fluticasone Propionate [Flonase Allergy Relief] 2 sprays NS DAILY #1 spray.susp 08/19/19 Anemia: No Asthma: No Cancer: No Cardiac Disorders: No CVA: No COPD: No CHF: No Diabetes: No GI Disorders: No HTN: No Liver Disease: No Seizures: No Thyroid Disease: No - Surgical History Abdominal Surgery: No Appendectomy: No Cardiac Surgery: No Cholecystectomy: No Lung Surgery: No Neurologic Surgery: No Orthopedic Surgery: No - Psycho Social/Smoking Cessation Hx Smoking Status: No Smoking History: Current some day smoker Have you smoked in the past 12 months: No Number of Cigarettes Smoked Daily: 3 Information on smoking cessation initiated: No Hx Alcohol Use: No Drug/Substance Use Hx: No Substance Use Type: None Hx Substance Use Treatment: No Review of Systems - Review of Systems Comments:: 08/19/19 22:08 - Review of Systems Able to Perform ROS?: Yes Constitutional: No: Fever, Chills, Loss of Appetite, Night Sweats, Weakness HEENTM: No: Eye Pain, Vision changes, Throat Pain, Throat Swelling, Mouth Pain, Difficulty Swallowing; positive ear fullness, positive sinus pressure Respiratory: No: Cough, Shortness of Breath, Wheezing, Sputum Production Cardiac (ROS): No: Chest Pain, Chest Tightness, Palpitations, Irregular Heart Beat, Edema ABD/GI: No: Nausea, Vomiting, Abdominal Pain, Diarrhea : No Dysuria, No Hematuria, No Frequency, No Urgency Musculoskeletal: No: Muscle Pain, Back Pain, Joint Pain, Muscle Weakness, Neck Pain Integumentary: No: Lesions, Rash Neurological: No: Headache, Numbness, Tingling, Weakness, Speech Difficulties *Physical Exam - Vital Signs Last Vital Signs Temp Pulse Resp BP Pulse Ox 98.1 F 91 H 18 120/78 100 08/19/19 21:15 08/19/19 21:15 08/19/19 21:15 08/19/19 21:15 08/19/19 21:15 - Physical Exam 08/19/19 22:09 - Physical Exam General Appearance: Nourished, Appropriately Dressed, No Distress HEENT: EOMI, Normal Voice, No Pharyngeal Erythema, No Muffled/Hoarse voice, No Tonsillar Exudate, No Tonsillar Erythema, positive bilateral ear effusions without infection appreciated. Bilateral turbinate edema appreciated. Tenderness with tapping over the maxillary sinuses. Respiratory/Chest: Lungs Clear, Normal Breath Sounds. No Respiratory Distress, No Accessory Muscle Use Cardiovascular: Regular Rhythm, Regular Rate, S1, S2 Gastrointestinal/Abdominal: Normal Bowel Sounds, Soft. Non-tender, No Guarding , No Rebound, No Rigidity Musculoskeletal: Normal Inspection. No Decreased Range of Motion Extremity: Normal Capillary Refill, Normal Inspection Integumentary: Normal Color, Dry. No Rash Neurologic: commissary agent II-XII NML intact, Fully Oriented, Alert, Normal Mood/Affect, Normal Response Medical Decision Making - Medical Decision Making 08/19/19 22:09 Assessment: Patient is a 33-year-old female with sinus pressure and ear pressure. Plan: I have made the patient aware that her symptoms do not appear infectious and are more likely secondary to a rhinitis. I will prescribe the patient Flonase and Zyrtec. She should follow-up with her primary doctor within 1 to 2 days for repeat evaluation. Secondary to the patient not having any fevers I will not prescribe antibiotics at this time. Discharge - Discharge Information Problems reviewed: Yes Clinical Impression/Diagnosis: Rhinitis Qualifiers: Rhinitis type: acute Qualified Code(s): J00 - Acute nasopharyngitis [common cold] Condition: Stable Disposition: HOME - Additional Discharge Information Prescriptions: Cetirizine HCl/Pseudoephedrine [Zyrtec-D Tablet] 1 each PO BID 7 Days #14 tab.er.12h Fluticasone Propionate [Flonase Allergy Relief] 2 sprays NS DAILY #1 spray.susp - Follow up/Referral Referrals: Maribel Berrios MD [Primary Care Provider] - 2 Days - Patient Discharge Instructions Patient Printed Discharge Instructions: DI for Allergic Rhinitis Additional Instructions: Use the nasal spray once daily and spray 2 sprays in each nostril. Use the allergy tablets twice daily as prescribed. Be sure to follow-up with your primary doctor within 1 to 2 days for repeat evaluation. - Post Discharge Activity Work/Back to School Note: Back to Work
== END 2019-08-19 22:42 | disposition home or self-care (01) ==
LOC: JERFT 20:55
DX: J00 Acute nasopharyngitis [common cold] (principal); Z72.0 Tobacco use
CPT/HCPCS: 99283-25